=== PATIENT | female | born 1945 | race Caucasian/White ===

== ENCOUNTER 2016-09-11 11:47 | Emergency (ER) | payer OTHER ==
[2016-09-11 11:54] VITALS: TEMP 99.3
--- NOTE | 2016-09-11 11:58 | EDPHY ---
H & P Stated Complaint: cough bringing up dark phlem Time Seen by Provider: 09/11/16 11:57 HPI/ROS: CHIEF COMPLAINT: URI symptoms x2 weeks HISTORY OF PRESENT ILLNESS: 71-year-old female presents emergency department with her who has similar symptoms complaining of cold symptoms for the past 2 weeks with a cough that is worsening. Patient reports she started 2 weeks ago with nasal congestion, sore throat, ear pain, fatigue, and a cough. Cough is productive with dark sputum. Patient reports body aches. Shee took NyQuil last night for her symptoms other than that she has not taken any medications. Patient is from [place] and drove to [place] during this illness. Symptoms started before the trip. No calf pain, no chest pain. REVIEW OF SYSTEMS: A comprehensive 10 point review of systems is otherwise negative aside from elements mentioned in the history of present illness. 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 ENT: Tympanic membranes clear, external auditory canal, external ear and surrounding soft tissue including over the mastoid unremarkable. Nasopharynx is injected, there is clear rhinorrhea. Oropharynx with erythema, no edema. There is no exudate. No tonsillar hypertrophy. No asymmetry. The uvula is midline. No elevation of tongue. There is no hoarseness. No drooling, patient has good control of their oral secretions. No trismus. No stridor. Cardiac: Regular rate and rhythm. Respiratory: Rhonchi to right upper lobe. Neurological: no meningismus. Skin: No rashes. Constitutional: Initial Vital Signs Temperature (C) 37.4 C 09/11/16 11:50 Heart Rate 85 09/11/16 11:50 Respiratory Rate 14 09/11/16 11:50 Blood Pressure 135/65 H 09/11/16 11:50 O2 Sat (%) 95 09/11/16 11:50 O2 Delivery Mode Room Air Allergies/Adverse Reactions: No Known Allergies Allergy (Unverified 09/11/16 11:54) Home Medications: Medication Instructions Recorded AZITHROMYCIN [Z-PACK] 250 mg PO DAILY #6 tab 09/11/16 Albuterol [Proventil Inhaler HFA 1 - 2 puffs IH Q4H #1 mdi 09/11/16 (*)] Atorvastatin Calcium 09/11/16 Benadryl 09/11/16 Benzonatate [Tessalon Pearles (RX)] 100 mg PO Q8 PRN #20 cap 09/11/16 Co-Zopiclone 09/11/16 Coversyl 09/11/16 Desloratadine 09/11/16 Dexilant 09/11/16 Endocet 5-325 Tablet 09/11/16 Fluticasone Nasal [Flonase Nasal 1 sprays NASAL DAILY #1 mdi 09/11/16 [place] (RX)] Lyrica 09/11/16 Metformin HCl 09/11/16 Metoprolol Succinate Xr 09/11/16 Multivitamin 09/11/16 Xarelto 09/11/16 Medical Decision Making - Diagnostics Imaging Results: Imaging Impressions Chest X-Ray 09/11/16 12:00 Impression: 1. Bronchitis without evidence of pneumonia. 2. Large hiatal hernia. 3. Additional findings as above. Imaging: Discussed imaging studies w/ fire equipment operator Radiologist, I viewed and interpreted images myself ED Course/Re-evaluation: Influenza and chest x-ray obtained, patient is given 650 mg of Tylenol. Influenza is negative, chest x-ray shows evidence of bronchitis, no evidence of pneumonia. The patient will be discharged with a prescription for Zithromax due to the longevity of her symptoms, Flonase, Tessalon Perles and albuterol inhaler. She is given strict return precautions for any worsening symptoms, chest pain or shortness of breath. Differential Diagnosis: Diagnosis considered but not limited to viral syndrome, bronchitis, influenza, pneumonia. - Data Points Laboratory Results: 09/11/16 12:17 Influenza A,B Rapid NEGATIVE FOR FLU (NEGATIVE) Medications Given: Discontinued Medications Acetaminophen (Tylenol) 650 mg PO EDNOW ONE Stop: 09/11/16 12:14 Last Admin: 09/11/16 12:35 Dose: 650 mg Departure - Departure Disposition: Home, Routine, Self-Care Clinical Impression: Acute bronchitis Qualifiers: Bronchitis organism: unspecified organism Qualified Code(s): J20.9 - Acute bronchitis, unspecified Condition: Good Instructions: Acute Bronchitis (ED) Additional Instructions: Use albuterol inhaler, 2 puffs every 4-6 hours as needed for cough. Use flonase , 1 spray in each nostril daily. Drink plenty water, rest, take your antibiotics as prescribed. Return to the emergency department for worsening symptoms, chest pain or shortness of breath. Referrals: Angélica Luis MD [[facility] [place]] - Follow Up Only If Needed ( Primary care doctor on-call) Prescriptions: Albuterol [Proventil Inhaler HFA (*)] 1 - 2 puffs IH Q4H #1 mdi AZITHROMYCIN [Z-PACK] 250 mg PO DAILY #6 tab Benzonatate [Tessalon Pearles (RX)] 100 mg PO Q8 PRN #20 cap PRN Reason: Cough, Moderate Fluticasone Nasal [Flonase Nasal [place] (RX)] 1 sprays NASAL DAILY #1 mdi
[2016-09-11] MEDS ORDERED: ACETAMINOPHEN 325 MG TAB PO ONE (12:13)
[2016-09-11 13:40] VITALS: BP 132/66; PULSE 72; RESP 18; O2SAT 96
== END 2016-09-11 13:21 | disposition home or self-care (01) ==
DX: J20.9 Acute bronchitis, unspecified (principal); E11.9 Type 2 diabetes mellitus without complications; Z79.84 Long term (current) use of oral hypoglycemic drugs; Z87.891 Personal history of nicotine dependence

== ENCOUNTER 2016-09-15 13:01 | Emergency (ER) | payer OTHER ==
[2016-09-15 13:11] VITALS: TEMP 97.9
[2016-09-15] MEDS ORDERED: predniSONE 20 MG TAB PO STA (13:38)
--- NOTE | 2016-09-15 13:44 | EDPHY ---
H & P Time Seen by Provider: 09/15/16 13:11 HPI/ROS: CHIEF COMPLAINT: Cough HISTORY OF PRESENT ILLNESS: This is a 71-year-old female presenting to the emergency department complaining of persistent cough. Patient was seen on 09/11 for acute bronchitis no evidence of pneumonia, was placed on azithromycin , Tessalon Perle, Flonase, and albuterol inhaler. Patient states shortness of breath has resolved but the persistent cough worsening at night is keeping her up. Patient also also reporting Tessalon Perles have not helped resolve her cough. Denies any fever, productive cough, complains of intermittent in postnasal drip REVIEW OF SYSTEMS: Constitutional: No fever, no chills. Eyes: No discharge. ENT: No sore throat. Postnasal drip Cardiovascular: No chest pain, no palpitations. Respiratory: Nonproductive cough, no shortness of breath. Gastrointestinal: No abdominal pain, no vomiting. Genitourinary: No hematuria. Musculoskeletal: No back pain. Skin: No rashes. Neurological: headache induced by cough Smoking Status: Former smoker Physical Exam: General Appearance: Alert, no distress. Eyes: no pallor or injection. ENT, Mouth: Mucous membranes moist. Respiratory: There are no retractions, lungs are clear to auscultation. Cough on exam, nonlabored respiratory effort Cardiovascular: Regular rate and rhythm. Gastrointestinal: Abdomen is soft and nontender, no masses, bowel sounds normal. Neurological: No focal deficits Skin: Warm and dry, no rashes. Musculoskeletal: Neck is supple nontender. Extremities: symmetrical, full range of motion. Psychiatric: Patient is oriented X 3, there is no agitation. Constitutional: Initial Vital Signs Temperature (C) 36.6 C 09/15/16 13:07 Heart Rate 84 09/15/16 13:07 Respiratory Rate 20 09/15/16 13:07 Blood Pressure 119/69 09/15/16 13:07 O2 Sat (%) 96 09/15/16 13:07 O2 Delivery Mode Room Air Allergies/Adverse Reactions: No Known Allergies Allergy (Unverified 09/11/16 11:54) Home Medications: Medication Instructions Recorded AZITHROMYCIN [Z-PACK] 250 mg PO DAILY #6 tab 09/11/16 Albuterol [Proventil Inhaler HFA 1 - 2 puffs IH Q4H #1 mdi 09/11/16 (*)] Atorvastatin Calcium 09/11/16 Benadryl 09/11/16 Benzonatate [Tessalon Pearles (RX)] 100 mg PO Q8 PRN #20 cap 09/11/16 Co-Zopiclone 09/11/16 Coversyl 09/11/16 Desloratadine 09/11/16 Dexilant 09/11/16 Endocet 5-325 Tablet 09/11/16 Fluticasone Nasal [Flonase Nasal 1 sprays NASAL DAILY #1 mdi 09/11/16 [place] (RX)] Lyrica 09/11/16 Metformin HCl 09/11/16 Metoprolol Succinate Xr 09/11/16 Multivitamin 09/11/16 Xarelto 09/11/16 Codeine Phosphate/Guaifenesin 5 ml PO Q4-6PRN PRN #140 ml 09/15/16 [Guaifenesin-Codeine Syrup] predniSONE 40 mg PO DAILY #10 tab 09/15/16 Medical Decision Making ED Course/Re-evaluation: Discussed the plan of care: Initial dose of prednisone given here. Discussed continue with antibiotics that were prescribed by previous provider. Discharge home---> stable, discussed discharge instructions Differential Diagnosis: Other differential diagnosis considered but not limited to , and allergic rhinitis CHF and pneumonia - Data Points Medications Given: Discontinued Medications Prednisone (Prednisone) 40 mg PO EDNOW STA Stop: 09/15/16 13:39 Last Admin: 09/15/16 13:45 Dose: 40 mg Departure - Departure Disposition: Home, Routine, Self-Care Clinical Impression: Bronchitis Condition: Good Instructions: Acute Bronchitis (ED), Bronchospasm (ED), How Your Lungs Work (ED ) Additional Instructions: Discussed discharge instructions 1. Continue taking antibiotics as prescribed by previous provider. Use inhaler as needed but if at any point time you feel like you are having palpitations stop using the inhaler 2. I have given you a prescription for prednisone for 5 days, as we discussed this can increase her blood sugar slightly. It is important you monitor your blood sugar. I have also given you a prescription for Robitussin with codeine, use this as needed to help suppress the cough. Do not take any additional sleeping medication as this medication has codeine making can make you drowsy. 3. Follow up with your primary care provider when you get back to [place] 4. If at any point time symptoms worsen, such as: Chest pain, increased shortness of breath, fever return to the ER Referrals: NONE *PRIMARY CARE P,. [Primary Care Provider] - As per Instructions Prescriptions: Codeine Phosphate/Guaifenesin [Guaifenesin-Codeine Syrup] 5 ml PO Q4-6PRN PRN # 140 ml PRN Reason: Cough, Moderate predniSONE 40 mg PO DAILY #10 tab
[2016-09-15 14:07] VITALS: BP 122/79; PULSE 82; RESP 18; O2SAT 95
== END 2016-09-15 14:07 | disposition home or self-care (01) ==
DX: J40 Bronchitis, not specified as acute or chronic (principal); Z79.01 Long term (current) use of anticoagulants; Z87.891 Personal history of nicotine dependence